=== PATIENT | female | born 1985 | race Two or more races ===

== ENCOUNTER 2024-11-14 06:00 | Day surgery (SDC) | payer MEDICAID, SELFPAY ==
--- NOTE | 2024-11-11 06:47 | EKG_ITS ---
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
[2024-11-11 07:25] VITALS: BMI 26.5
[2024-11-11 08:13] LABS: Collection Type, Urine Clean Catch
[2024-11-11 08:23] LABS: Basophils # (Auto) 0.0 Thou/mm3 (0.0-0.2); Basophils % (Auto) 1 % (0-2.5); Eosinophils # (Auto) 0.2 Thou/mm3 (0.0-0.5); Eosinophils % (Auto) 3 % (0-10); Hematocrit 35.3 % (36.0-46.0); Hemoglobin 11.5 g/dL (12.0-16.0); Immature Granulocytes Auto 0.01 Thou/mm3 (0.00-0.00); Lymphocytes # (Auto) 1.2 Thou/mm3 (1.0-4.8); Lymphocytes % (Auto) 19 % (10-50); Mean Corpuscular HGB Conc 32.6 g/dl (31.0-37.0); Mean Corpuscular Hemoglobin 28.0 pg (25.0-35.0); Mean Corpuscular Volume 86 fL (80-100); Monocytes # (Auto) 0.4 Thou/mm3 (0.0-0.8); Monocytes % (Auto) 7 % (0-12); Neutrophils # (Auto) 4.3 Thou/mm3 (1.8-7.7); Neutrophils % (Auto) 71 % (37-80); Nucleated Red Blood Cell # 0.00 Thou/mm3 (0.00-0.00); Nucleated Red Blood Cell % 0 /100 WBC (0); Platelet Count 218 Thou/mm3 (140-440); RDW Standard Deviation 40.4 fL (36.4-46.3); Red Blood Count 4.10 Miln/mm3 (4.00-5.20); White Blood Count 6.1 Thou/mm3 (3.6-11.0)
[2024-11-11 08:29] LABS: Bilirubin,Urine Negative (Negative); Blood,Urine 1+ (Negative); Clarity,Urine Clear (Clear/Hazy); Color,Urine Yellow (Lt Yel-Yel); Glucose, Urine Negative (Negative); Ketones,Urine Negative (Negative); Leukocyte Esterase,Urine Negative (Negative); Nitrite,Urine Negative (Negative); PH,Urine 8.0 (5.0-7.0); Protein,Urine Negative (Neg - Trace); RBC,Urine 17 /hpf (0-3); Specific Gravity,Urine 1.024 (1.001-1.035); Squamous Epithelial Cell,Urine 1 /hpf (0-5); Urobilinogen,Urine Negative mg/dL (0.0-1.0); WBC,Urine 1 /hpf (0-5)
[2024-11-11 08:42] LABS: Alanine Aminotransferase 7 U/L (10-49); Albumin, Serum 4.3 gm/dL (3.5-5.0); Albumin/Globulin Ratio 1.5 (1.2-2.2); Alkaline Phosphatase 71 U/L (46-116); Anion Gap 11 (7-16); Aspartate Amino Transferase 15 U/L (0-34); BUN/Creatinine Ratio 10 Ratio (12-20); Bilirubin,Total 0.4 mg/dL (0.3-1.2); Blood Urea Nitrogen 7 mg/dL (9-23); Calcium 9.6 mg/dL (8.3-10.6); Calcium (Corrected) 9.6 mg/dL (8.5-10.1); Carbon Dioxide 27.5 mMol/L (20.0-31.0); Chloride 107 mMol/L (98-107); Creatinine (Component) 0.7 mg/dL (0.6-1.3); Estimated Creatinine Clearance 104.4 mL/min (>60); Globulin 2.9 gm/dL (2.3-3.5); Glucose 91 mg/dL (74-106); Osmolality,Calculated 286 (275-295); Potassium 3.6 mMol/L (3.4-5.1); Sodium 145 mMol/L (136-145); Total Protein 7.2 gm/dL (5.7-8.2); eGFR > 60 See Note
[2024-11-11 10:00] LABS: HCG Qualitative,Urine Negative
[2024-11-11 10:03] LABS: Partial Thromboplastin Time 27.1 Seconds (22.0-36.0)
[2024-11-14] VITALS (8 sets, daily range): BP systolic 100–114; BP diastolic 61–69; PULSE 61–105; RESP 12–18; TEMP 36.2–36.6; O2SAT 99–100; BMI 26.9
[2024-11-14] MEDS: RINGERS LACTATED 1000 ML 1,000 ML 60 ML IV (06:55)
--- NOTE | 2024-11-14 07:45 | SUR.PREOP ---
Patient expressed gratitude for prayer before their procedure.
--- NOTE | 2024-11-14 09:30 | SUR.PHASEI ---
0930: Pt. AAOx4, vitals stable, breathing unlabored, no complaint of pain or nausea, dressing to rectum has scant amount of blood, report received from MD Hubbard and Genie SILVA.
[2024-11-14] MEDS: fentaNYL CIT INJ 50 mCg/ML AMP 2ML 25 MCG IVP (09:52)
--- NOTE | 2024-11-14 10:04 | ESOP_ITS ---
Date of Procedure 11/14/24 Pre Op Diagnosis Complex internal/external hemorrhoids with fissure in ano Post Op Diagnosis Same. Procedure Internal and external hemorrhoidectomy fissurectomy and lateral sphincterotomy on 11/14/2024 Findings This patient has a deep fissure in ano at 6 o'clock position with a sentinel hemorrhoid. She also has hemorrhoids at 3:00 9:00 and 11 o'clock position. The sphincter is hypertrophic. Procedure Description The patient was interviewed in the preop area. Patient understanding of surgery was discussed and is ascertained that patient knows what procedure we are going to do. The risk benefits and alternatives of hemorrhoidectomy surgery were discussed in detail with the patient and informed consent is obtained. The risk includes risk of bleeding infection urinary retention possible long-term recurrence of the hemorrhoids and anesthesia related complications. The patient has done bowel prep as prescribed. Patient was taken to the operating room and laid supine on the operating room table. General anesthesia was administered satisfactorily. Patient is positioned in the lithotomy position on yellowfins. Perianal region is prepped and draped in usual manner. A timeout procedure was carried out. A dilute lidocaine with epinephrine is injected and pararectal and internal pudendal blocks were achieved bilaterally. Examination is carried out under anesthesia and shows that the patient has extensive hemorrhoids. The hemorrhoid at 3 o'clock position, 6 o'clock position, 9 o'clock position and 11 o'clock position were removed. All hemorrhoids were removed by similar technique. For each hemorrhoid pedicles were ligated with 3-0 Vicryl sutures. After that a V-shaped incision was made around the external hemorrhoid and was dissected from the sphincter. The internal sphincter was identified and was protected. The hemorrhoid was removed as a specimen. The fissure was dissected and scar tissue was removed. After all this hemostasis is achieved. Significant amount of mucosa and the anal skin were left between the excisions in order to prevent the wolf deformity. The hemorrhoidal incisions were kept open for secondary healing. Dilute lidocaine solution is infiltrated again. Lidocaine with Silverdene cream is applied. A cigarette drain fashioned from a 4 x 4 gauze is placed in the anal canal. Sterile dressing is applied. Patient tolerated the procedure very well. Anesthesia GETA Drains None. Implants None. Pathology / specimen Other (hemorrhoid at 3 o'clock position, 6 o'clock position, 9 o'clock position and 11 o'clock position) Estimated Blood Loss 5 Condition Stable Disposition PACU Surgeon Edinson Arnett MD Surgical Staff Operation Date: 11/14/24 07:30 Case Staff Anesthesiologist: Chadwick Hubbard surgical manager Genie SILVA local superintendent
--- NOTE | 2024-11-14 10:40 | SUR.PHASEII ---
1040: Pt. AAOx4, vitals stable, breathing unlabored, no complaint of pain or nausea, dressing to rectum has scant amount of blood, pt. tolerated sips of water well, pt. ambulated to wheelchair with steady gait and no assist, no complications. Gave discharge instructions to the pt. and her ride using a spanish medical interpreter, both verbalized understanding and had no further questions. Pt. left with all personal belongings.
== END 2024-11-14 10:40 | disposition home or self-care (01) ==
PROVIDERS: Anesthesiology; PCP Physician Assistant; Referring Provider Specialist; Visit Provider Specialist
PROC: (CPT 46946; principal; 2024-11-14 07:30)
DX: K64.8 Other hemorrhoids (principal); K64.4 Residual hemorrhoidal skin tags; K60.2 Anal fissure, unspecified; Z01.810 Encounter for preprocedural cardiovascular examination; I25.2 Old myocardial infarction
CPT/HCPCS: 46946; 36415; 80053; 81001; 81025; 85025; 85730; 93005; A4217; A4649; J0131; J0690; J0694; J1100; J2250; J2405; J2704; J3010; J3490; J7120; J7999; A9270

== ENCOUNTER 2025-01-24 10:30 | Day surgery (SDC) | payer MEDICAID, SELFPAY ==
[2025-01-23 13:51] LABS: HCG Qualitative,Urine Negative
[2025-01-23 14:40] VITALS: BMI 32.1
[2025-01-24] VITALS (11 sets, daily range): BP systolic 103–119; BP diastolic 52–78; PULSE 60–92; RESP 12–20; TEMP 36.6–36.9; O2SAT 96–100; BMI 32.1
--- NOTE | 2025-01-24 16:50 | SUR.PHASEII ---
1650 Patient meets discharge criteria from recovery, awake and alert, breathing unlabored, vital signs stable, denies pain and nausea, drinking water; tolerating well, able to dress herself into her clothing, discharge instructions given to patient and patients with by Yakut speaking nurse, signed discharge instructions. Patient given all her belongings prior to discharge, transported via wheelchair and left in a private vehicle.
== END 2025-01-24 16:50 | disposition home or self-care (01) ==
PROVIDERS: PCP Physician Assistant; Referring Provider Specialist; Visit Provider Specialist
PROC: (CPT 43239; principal; 2025-01-24 12:15)
DX: K31.7 Polyp of stomach and duodenum (principal); K22.2 Esophageal obstruction; K44.9 Diaphragmatic hernia without obstruction or gangrene; K21.00 Gastro-esophageal reflux disease with esophagitis, without bleeding; K29.70 Gastritis, unspecified, without bleeding; E07.9 Disorder of thyroid, unspecified; E21.5 Disorder of parathyroid gland, unspecified
CPT/HCPCS: 43239; 43450; 81025; A4649; J1200; J2250; J3010; A9270